=== PATIENT | male | born 1935 | race Caucasian/White ===

== ENCOUNTER 2022-04-06 14:11 | Inpatient (IN) | payer OTHER ==
[2022-04-06 15:37] LABS: VENOUS O2 SATURATION 96.6 % (70-80); VENOUS PCO2 32.5 mmHg (38-52); VENOUS PH 7.422 (7.310-7.410)
[2022-04-06 15:46] LABS: BASO % 0.3 % (0-2.0); EOS % 1.2 % (0-4.5); HEMATOCRIT 32.6 % (35.4-49); HEMOGLOBIN 10.3 GM/dL (11.7-16.9); LYMPH % 2.6 % (8-40); MCHC 31.6 g/dl (32.0-35.9); MEAN CELL VOLUME 85.4 fl (80-96); MEAN PLT VOLUME 8.5 fl (7.5-11.1); MONO % 8.3 % (3.8-10.2); NEUT % 87.6 % (42.8-82.8); PLATELET COUNT 133 10^3/uL (134-434); RBC 3.82 M/mm3 (4.00-5.60); RDW 15.9 % (11.9-15.9); WHITE BLOOD COUNT 11.6 K/mm3 (4.0-10.0)
[2022-04-06 15:57] LABS: ACTIVATED PTT 37.2 SECONDS (25.2-36.5); INR 1.74 (0.83-1.09); PROTHROMBIN TIME (PATIENT) 20.1 SEC (9.7-13.0)
[2022-04-06 16:03] LABS: CALCIUM 8.3 mg/dL (8.5-10.1)
[2022-04-06 16:04] LABS: ALBUMIN 3.2 g/dl (3.4-5.0)
[2022-04-06 16:07] LABS: CREATININE 1.5 mg/dL (0.55-1.3)
[2022-04-06 16:09] LABS: BILIRUBIN,TOTAL 1.2 mg/dL (0.2-1); TOT PROT 7.8 g/dl (6.4-8.2)
[2022-04-06] MEDS ORDERED: FUROSEMIDE 40 MG/4 ML INJECTABLE VIAL IVPUSH ONE (20:02)
[2022-04-06] MEDS ORDERED: ASPIRIN 81 MG CHEWABLE TABLETS PO ONE (20:02)
[2022-04-06] MEDS ORDERED: ATORVASTATIN CA 80 MG TABLET (FP) PO ONE (20:09)
[2022-04-06] MEDS ORDERED: APIXABAN 2.5 MG TABLET ONE (20:50)
[2022-04-06] MEDS ORDERED: METOPROLOL TARTRATE 25 MG TABLET (FP) ONE (20:50)
[2022-04-06] MEDS ORDERED: SENNOSIDES 8.6MG TABLET (FP) PO ONE (20:50)
[2022-04-06] MEDS ORDERED: ATORVASTATIN CA 40 MG TABLET (FP) ONE (20:50)
[2022-04-06] MEDS ORDERED: FUROSEMIDE 40 MG/4 ML INJECTABLE VIAL ONE (20:51)
[2022-04-06] MEDS ORDERED: ASPIRIN 81 MG CHEWABLE TABLETS ONE (20:51)
[2022-04-06] MEDS ORDERED: DOCUSATE SODIUM 100 MG CAPSULE (FP) PO ONE (20:51)
[2022-04-06] MEDS: APIXABAN 2.5 MG TABLET PO SCH (21:05)
[2022-04-06] MEDS: DOCUSATE SODIUM 100 MG CAPSULE (FP) PO SCH (21:05)
[2022-04-06] MEDS: METOPROLOL TARTRATE 25 MG TABLET (FP) PO SCH (21:05)
[2022-04-06] MEDS: SENNOSIDES 8.6MG TABLET (FP) PO SCH (21:05)
[2022-04-06 22:00] LABS: URINE APPEARANCE CLEAR; URINE BILIRUBIN NEGATIVE (NEGATIVE); URINE COLOR YELLOW; URINE GLUCOSE (UA) NEGATIVE (NEGATIVE); URINE KETONE NEGATIVE (NEGATIVE); URINE LEUK ESTERASE NEGATIVE (NEGATIVE); URINE NITRITE NEGATIVE (NEGATIVE); URINE PROTEIN TRACE (NEGATIVE); URINE UROBILINOGEN 0.2 mg/dL (0.2-1.0)
[2022-04-06] MEDS ORDERED: VANCOMYCIN 1 GM in D5W (PRE-DOCKED) 1,000 MG/250 ML IVPB SCH ×2 (22:34→22:45)
[2022-04-06] MEDS ORDERED: VANCOMYCIN 1 GRAM (PRE-DOCKED) 1,000 MG/250 ML BAG IVPB ONE (23:02)
[2022-04-07] MEDS ORDERED: FUROSEMIDE 40 MG/4 ML INJECTABLE VIAL ONE ×2 (06:06→13:30)
[2022-04-07] MEDS: FUROSEMIDE 40 MG/4 ML INJECTABLE VIAL IVPUSH SCH ×2 (06:20→13:50)
[2022-04-07 08:35] LABS: BASO % 0.3 % (0-2.0); EOS % 5.7 % (0-4.5); HEMATOCRIT 32.6 % (35.4-49); HEMOGLOBIN 10.4 GM/dL (11.7-16.9); LYMPH % 10.1 % (8-40); MCH 27.3 pg (25.7-33.7); MCHC 31.9 g/dl (32.0-35.9); MEAN CELL VOLUME 85.4 fl (80-96); MEAN PLT VOLUME 8.6 fl (7.5-11.1); MONO % 11.6 % (3.8-10.2); NEUT % 72.3 % (42.8-82.8); PLATELET COUNT 134 10^3/uL (134-434); RBC 3.82 M/mm3 (4.00-5.60); RDW 16.1 % (11.9-15.9); WHITE BLOOD COUNT 7.3 K/mm3 (4.0-10.0)
[2022-04-07 08:49] LABS: CALCIUM 8.8 mg/dL (8.5-10.1)
[2022-04-07 08:50] LABS: MAGNESIUM 2.4 mg/dL (1.8-2.4)
[2022-04-07 08:51] LABS: ALBUMIN 3.2 g/dl (3.4-5.0)
[2022-04-07 08:52] LABS: BLOOD UREA NITROGEN 35.7 mg/dL (7-18)
[2022-04-07 08:53] LABS: CREATININE 1.5 mg/dL (0.55-1.3)
[2022-04-07 08:55] LABS: PHOSPHOROUS 3.7 mg/dL (2.5-4.9); TOT PROT 7.5 g/dl (6.4-8.2)
[2022-04-07 08:56] LABS: BILIRUBIN,TOTAL 1.5 mg/dL (0.2-1)
[2022-04-07] MEDS ORDERED: METOPROLOL TARTRATE 25 MG TABLET (FP) ONE ×2 (09:42→21:33)
[2022-04-07] MEDS ORDERED: APIXABAN 2.5 MG TABLET ONE ×2 (09:42→21:34)
[2022-04-07] MEDS: METOPROLOL TARTRATE 25 MG TABLET (FP) PO SCH ×2 (09:57→21:54)
[2022-04-07] MEDS: APIXABAN 2.5 MG TABLET PO SCH ×2 (09:57→21:54)
[2022-04-07] MEDS ORDERED: HEPARIN NA (PORCINE) 5,000 UNITS/ML 1ML VIAL SQ SCH (10:00)
[2022-04-07] MEDS ORDERED: CEFTRIAXONE 1 GM/50 ML BAG ONE (12:11)
[2022-04-07] MEDS: CEFTRIAXONE 1 GM in DEXTROSE 5%-WATER - 50 ML IVPB SCH (12:26)
[2022-04-07] MEDS ORDERED: DOCUSATE SODIUM 100 MG CAPSULE (FP) PO ONE (21:34)
[2022-04-07] MEDS ORDERED: SENNOSIDES 8.6MG TABLET (FP) PO ONE (21:34)
[2022-04-07] MEDS: DOCUSATE SODIUM 100 MG CAPSULE (FP) PO SCH (21:54)
[2022-04-07] MEDS: SENNOSIDES 8.6MG TABLET (FP) PO SCH (21:54)
[2022-04-08] MEDS ORDERED: ALBUTEROL SO4 0.083% IH SOL 2.5 MG/3 ML VIAL.NEB. NEB ONE (04:15)
[2022-04-08] MEDS ORDERED: HALOPERIDOL LACTATE 5 MG/ML IM ONE (04:24)
[2022-04-08] MEDS: FUROSEMIDE 40 MG/4 ML INJECTABLE VIAL IVPUSH SCH ×2 (05:00→15:12)
[2022-04-08 08:23] LABS: BASO % 0.5 % (0-2.0); EOS % 4.7 % (0-4.5); HEMATOCRIT 31.6 % (35.4-49); HEMOGLOBIN 10.1 GM/dL (11.7-16.9); LYMPH % 11.2 % (8-40); MCH 26.9 pg (25.7-33.7); MCHC 31.8 g/dl (32.0-35.9); MEAN CELL VOLUME 84.4 fl (80-96); MEAN PLT VOLUME 8.6 fl (7.5-11.1); MONO % 12.7 % (3.8-10.2); NEUT % 70.9 % (42.8-82.8); PLATELET COUNT 127 10^3/uL (134-434); RBC 3.75 M/mm3 (4.00-5.60); RDW 16.2 % (11.9-15.9); WHITE BLOOD COUNT 6.5 K/mm3 (4.0-10.0)
[2022-04-08 08:43] LABS: ALBUMIN 3.2 g/dl (3.4-5.0); BLOOD UREA NITROGEN 38.8 mg/dL (7-18); CALCIUM 8.7 mg/dL (8.5-10.1)
[2022-04-08 08:46] LABS: CREATININE 1.5 mg/dL (0.55-1.3)
[2022-04-08 08:48] LABS: BILIRUBIN,TOTAL 1.3 mg/dL (0.2-1); TOT PROT 7.8 g/dl (6.4-8.2)
[2022-04-08] MEDS ORDERED: cefTRIAXone SODIUM 1 GM VIAL ONE (09:33)
[2022-04-08] MEDS ORDERED: DEXTROSE 5%-WATER - 50 ML IVPB ONE (09:33)
[2022-04-08] MEDS: METOPROLOL TARTRATE 25 MG TABLET (FP) PO SCH ×2 (09:36→21:44)
[2022-04-08] MEDS: CEFTRIAXONE 1 GM in DEXTROSE 5%-WATER - 50 ML IVPB SCH (09:36)
[2022-04-08] MEDS: APIXABAN 2.5 MG TABLET PO SCH ×2 (09:36→21:44)
[2022-04-08] MEDS ORDERED: PNEUMOC 20-VAL CONJ-DIP CRM/PF 0.5 ML SYRINGE IM ONE (10:30)
[2022-04-08 16:05] VITALS: BMI 27.7
[2022-04-08] MEDS: DOCUSATE SODIUM 100 MG CAPSULE (FP) PO SCH (21:44)
[2022-04-08] MEDS: SENNOSIDES 8.6MG TABLET (FP) PO SCH (21:45)
[2022-04-09] MEDS ORDERED: HALOPERIDOL LACTATE 5 MG/ML IM ONE (01:30)
[2022-04-09] MEDS: FUROSEMIDE 40 MG/4 ML INJECTABLE VIAL IVPUSH SCH ×2 (05:41→13:15)
[2022-04-09] MEDS ORDERED: cefTRIAXone SODIUM 1 GM VIAL ONE (10:13)
[2022-04-09] MEDS ORDERED: DEXTROSE 5%-WATER - 50 ML IVPB ONE ×2 (10:13→17:55)
[2022-04-09] MEDS: METOPROLOL TARTRATE 25 MG TABLET (FP) PO SCH ×2 (10:14→22:20)
[2022-04-09] MEDS: CEFTRIAXONE 1 GM in DEXTROSE 5%-WATER - 50 ML IVPB SCH (10:15)
[2022-04-09] MEDS: APIXABAN 2.5 MG TABLET PO SCH ×2 (10:15→22:19)
[2022-04-09 16:15] LABS: BILIRUBIN,DIRECT 0.4 mg/dL (0.0-0.2)
[2022-04-09] MEDS ORDERED: PIPERACILLIN/TAZOBACTAM 3.375 GM VIAL IVPB ONE (17:55)
[2022-04-09] MEDS: PIPERACILLIN/TAZOB 3.375 GM 3.375 GM in DEXTROSE 5%-WATER - 50 ML IVPB SCH ×2 (17:56→20:48)
[2022-04-09] MEDS ORDERED: QUEtiapine FUMARATE 25 MG TABLET PO SCH (22:00)
[2022-04-09] MEDS: ACETAMINOPHEN 325 MG TABLET (FP) PO PRN (22:19)
[2022-04-09] MEDS: SENNOSIDES 8.6MG TABLET (FP) PO SCH (22:19)
[2022-04-10] MEDS ORDERED: PIPERACILLIN/TAZOBACTAM 3.375 GM VIAL IVPB ONE ×3 (01:47→17:06)
[2022-04-10] MEDS ORDERED: DEXTROSE 5%-WATER - 50 ML IVPB ONE ×3 (01:48→17:06)
[2022-04-10] MEDS: PIPERACILLIN/TAZOB 3.375 GM 3.375 GM in DEXTROSE 5%-WATER - 50 ML IVPB SCH ×3 (02:22→17:11)
[2022-04-10] MEDS: FUROSEMIDE 40 MG/4 ML INJECTABLE VIAL IVPUSH SCH ×2 (05:58→14:03)
[2022-04-10 09:27] LABS: BASO % 0.5 % (0-2.0); EOS % 11.5 % (0-4.5); HEMATOCRIT 31.3 % (35.4-49); HEMOGLOBIN 10.2 GM/dL (11.7-16.9); LYMPH % 11.1 % (8-40); MCH 27.7 pg (25.7-33.7); MCHC 32.7 g/dl (32.0-35.9); MEAN CELL VOLUME 84.6 fl (80-96); MEAN PLT VOLUME 8.2 fl (7.5-11.1); MONO % 11.3 % (3.8-10.2); NEUT % 65.6 % (42.8-82.8); PLATELET COUNT 128 10^3/uL (134-434); RBC 3.69 M/mm3 (4.00-5.60); RDW 15.6 % (11.9-15.9); WHITE BLOOD COUNT 5.8 K/mm3 (4.0-10.0)
[2022-04-10 10:02] LABS: ALBUMIN 2.9 g/dl (3.4-5.0)
[2022-04-10 10:03] LABS: TOT PROT 7.3 g/dl (6.4-8.2)
[2022-04-10 10:05] LABS: BILIRUBIN,DIRECT 0.3 mg/dL (0.0-0.2)
[2022-04-10] MEDS: METOPROLOL TARTRATE 25 MG TABLET (FP) PO SCH ×2 (10:49→21:57)
[2022-04-10] MEDS: PANTOPRAZOLE 20 MG TABLET PO SCH (10:49)
[2022-04-10] MEDS: APIXABAN 2.5 MG TABLET PO SCH ×2 (10:49→21:57)
[2022-04-10] MEDS: POLYETHYLENE GLYCOL (HEALTHYLAX) 3350 17 GM PACKET PO SCH ×2 (10:49→11:22)
[2022-04-10] MEDS ORDERED: IRON SUCROSE INJECTION 200 MG in SODIUM CHLORIDE 90 ML IVPB ONE (14:00)
[2022-04-10] MEDS ORDERED: PNEUMOC 20-VAL CONJ-DIP CRM/PF 0.5 ML SYRINGE IM ONE ×2 (18:00→22:00)
[2022-04-10] MEDS: SENNOSIDES 8.6MG TABLET (FP) PO SCH (21:57)
[2022-04-11] MEDS ORDERED: PIPERACILLIN/TAZOBACTAM 3.375 GM VIAL IVPB ONE ×2 (01:34→11:18)
[2022-04-11] MEDS ORDERED: DEXTROSE 5%-WATER - 50 ML IVPB ONE ×2 (01:34→11:18)
[2022-04-11] MEDS: PIPERACILLIN/TAZOB 3.375 GM 3.375 GM in DEXTROSE 5%-WATER - 50 ML IVPB SCH ×2 (02:19→10:55)
[2022-04-11] MEDS: FUROSEMIDE 40 MG/4 ML INJECTABLE VIAL IVPUSH SCH ×2 (06:59→15:00)
[2022-04-11 08:50] LABS: BASO % 0.4 % (0-2.0); EOS % 11.4 % (0-4.5); HEMOGLOBIN 10.7 GM/dL (11.7-16.9); LYMPH % 12.9 % (8-40); MCH 27.3 pg (25.7-33.7); MCHC 32.3 g/dl (32.0-35.9); MEAN CELL VOLUME 84.5 fl (80-96); MEAN PLT VOLUME 8.2 fl (7.5-11.1); MONO % 10.3 % (3.8-10.2); PLATELET COUNT 159 10^3/uL (134-434); RDW 15.5 % (11.9-15.9); WHITE BLOOD COUNT 6.2 K/mm3 (4.0-10.0)
[2022-04-11 09:19] LABS: ALBUMIN 3.2 g/dl (3.4-5.0)
[2022-04-11 09:21] LABS: CALCIUM 8.6 mg/dL (8.5-10.1); CREATININE 1.5 mg/dL (0.55-1.3)
[2022-04-11 09:24] LABS: BILIRUBIN,TOTAL 1.3 mg/dL (0.2-1); TOT PROT 7.7 g/dl (6.4-8.2)
[2022-04-11 10:26] LABS: HEPATITIS B SURFACE AG MATERN NON-REACTIVE (NONREACTIVE)
[2022-04-11] MEDS: APIXABAN 2.5 MG TABLET PO SCH ×2 (10:55→21:18)
[2022-04-11] MEDS: METOPROLOL TARTRATE 25 MG TABLET (FP) PO SCH ×2 (10:55→21:18)
[2022-04-11] MEDS: POLYETHYLENE GLYCOL (HEALTHYLAX) 3350 17 GM PACKET PO SCH (10:55)
[2022-04-11] MEDS: PANTOPRAZOLE 20 MG TABLET PO SCH (10:55)
[2022-04-11] MEDS: VANCOMYCIN/WATER 1250 MG 1,250 MG/250 ML BAG IVPB SCH (15:13)
[2022-04-11] MEDS: SENNOSIDES 8.6MG TABLET (FP) PO SCH (21:18)
[2022-04-12] MEDS: FUROSEMIDE 40 MG/4 ML INJECTABLE VIAL IVPUSH SCH ×2 (06:34→13:47)
[2022-04-12] MEDS: POLYETHYLENE GLYCOL (HEALTHYLAX) 3350 17 GM PACKET PO SCH (09:09)
[2022-04-12] MEDS: APIXABAN 2.5 MG TABLET PO SCH ×2 (09:09→22:47)
[2022-04-12] MEDS: METOPROLOL TARTRATE 25 MG TABLET (FP) PO SCH ×2 (09:09→22:48)
[2022-04-12] MEDS: PANTOPRAZOLE 20 MG TABLET PO SCH (09:09)
[2022-04-12] MEDS: VANCOMYCIN/WATER 1250 MG 1,250 MG/250 ML BAG IVPB SCH (13:58)
[2022-04-12] MEDS: SENNOSIDES 8.6MG TABLET (FP) PO SCH (22:48)
[2022-04-13] MEDS: FUROSEMIDE 40 MG/4 ML INJECTABLE VIAL IVPUSH SCH ×2 (06:28→13:45)
[2022-04-13] MEDS: METOPROLOL TARTRATE 25 MG TABLET (FP) PO SCH ×2 (09:53→21:08)
[2022-04-13] MEDS: PANTOPRAZOLE 20 MG TABLET PO SCH (09:53)
[2022-04-13] MEDS: APIXABAN 2.5 MG TABLET PO SCH ×2 (09:53→21:08)
[2022-04-13] MEDS: POLYETHYLENE GLYCOL (HEALTHYLAX) 3350 17 GM PACKET PO SCH (09:53)
[2022-04-13] MEDS: VANCOMYCIN/WATER 1250 MG 1,250 MG/250 ML BAG IVPB SCH (13:46)
[2022-04-13] MEDS: SENNOSIDES 8.6MG TABLET (FP) PO SCH (21:08)
[2022-04-14] MEDS: FUROSEMIDE 40 MG/4 ML INJECTABLE VIAL IVPUSH SCH ×2 (06:23→13:53)
[2022-04-14] MEDS: ACETAMINOPHEN 325 MG TABLET (FP) PO PRN ×2 (06:28→14:03)
[2022-04-14 07:50] LABS: BASO % 0.4 % (0-2.0); EOS % 2.1 % (0-4.5); HEMATOCRIT 35.2 % (35.4-49); HEMOGLOBIN 11.2 GM/dL (11.7-16.9); LYMPH % 7.2 % (8-40); MCH 26.9 pg (25.7-33.7); MCHC 31.8 g/dl (32.0-35.9); MEAN CELL VOLUME 84.5 fl (80-96); MEAN PLT VOLUME 8.2 fl (7.5-11.1); NEUT % 82.3 % (42.8-82.8); PLATELET COUNT 197 10^3/uL (134-434); RBC 4.17 M/mm3 (4.00-5.60); RDW 15.7 % (11.9-15.9); WHITE BLOOD COUNT 9.9 K/mm3 (4.0-10.0)
[2022-04-14 08:12] LABS: CALCIUM 9.1 mg/dL (8.5-10.1)
[2022-04-14 08:13] LABS: BLOOD UREA NITROGEN 36.5 mg/dL (7-18)
[2022-04-14 08:17] LABS: CREATININE 1.5 mg/dL (0.55-1.3)
[2022-04-14] MEDS: PANTOPRAZOLE 20 MG TABLET PO SCH (10:11)
[2022-04-14] MEDS: POLYETHYLENE GLYCOL (HEALTHYLAX) 3350 17 GM PACKET PO SCH (10:11)
[2022-04-14] MEDS: METOPROLOL TARTRATE 25 MG TABLET (FP) PO SCH ×2 (10:11→21:05)
[2022-04-14] MEDS: APIXABAN 2.5 MG TABLET PO SCH ×2 (10:11→21:05)
[2022-04-14] MEDS: VANCOMYCIN/WATER 1250 MG 1,250 MG/250 ML BAG IVPB SCH (13:56)
[2022-04-14] MEDS: SENNOSIDES 8.6MG TABLET (FP) PO SCH (21:05)
[2022-04-14] MEDS: OLANZapine 2.5 MG TABLET PO SCH (21:05)
[2022-04-15] MEDS: FUROSEMIDE 40 MG/4 ML INJECTABLE VIAL IVPUSH SCH ×2 (06:44→14:47)
[2022-04-15] MEDS: POLYETHYLENE GLYCOL (HEALTHYLAX) 3350 17 GM PACKET PO SCH (09:41)
[2022-04-15] MEDS: METOPROLOL TARTRATE 25 MG TABLET (FP) PO SCH ×2 (09:41→21:31)
[2022-04-15] MEDS: PANTOPRAZOLE 20 MG TABLET PO SCH (09:41)
[2022-04-15] MEDS: APIXABAN 2.5 MG TABLET PO SCH ×2 (09:41→21:32)
[2022-04-15] MEDS: SENNOSIDES 8.6MG TABLET (FP) PO SCH (21:31)
[2022-04-15] MEDS: OLANZapine 2.5 MG TABLET PO SCH (21:31)
[2022-04-16] MEDS: FUROSEMIDE 40 MG/4 ML INJECTABLE VIAL IVPUSH SCH ×2 (06:20→14:21)
[2022-04-16] MEDS: APIXABAN 2.5 MG TABLET PO SCH ×2 (10:15→22:32)
[2022-04-16] MEDS: METOPROLOL TARTRATE 25 MG TABLET (FP) PO SCH ×2 (10:15→22:32)
[2022-04-16] MEDS: POLYETHYLENE GLYCOL (HEALTHYLAX) 3350 17 GM PACKET PO SCH (10:15)
[2022-04-16] MEDS: PANTOPRAZOLE 20 MG TABLET PO SCH (10:15)
[2022-04-16] MEDS: SENNOSIDES 8.6MG TABLET (FP) PO SCH (22:32)
[2022-04-16] MEDS: OLANZapine 2.5 MG TABLET PO SCH (22:32)
[2022-04-17] MEDS: FUROSEMIDE 40 MG/4 ML INJECTABLE VIAL IVPUSH SCH ×2 (05:52→13:12)
[2022-04-17] MEDS: APIXABAN 2.5 MG TABLET PO SCH (09:21)
[2022-04-17] MEDS: METOPROLOL TARTRATE 25 MG TABLET (FP) PO SCH (09:22)
[2022-04-17] MEDS: PANTOPRAZOLE 20 MG TABLET PO SCH (09:22)
[2022-04-17] MEDS: POLYETHYLENE GLYCOL (HEALTHYLAX) 3350 17 GM PACKET PO SCH (09:22)
[2022-04-17 14:53] VITALS: PULSE 71
[2022-04-17 18:27] VITALS: BP 101/56; TEMP 97.8
== END 2022-04-17 19:10 | DRG 291 ==
LOC: JER 14:11 → JERBED 16:49 → J4S 04-07 23:37
PROVIDERS: ADMIT Internal Medicine
DX: I11.0 Hypertensive heart disease with heart failure (principal); J96.01 Acute respiratory failure with hypoxia; I50.33 Acute on chronic diastolic (congestive) heart failure; I24.8 Other forms of acute ischemic heart disease; L03.115 Cellulitis of right lower limb; A04.72 Enterocolitis due to Clostridium difficile, not specified as recurrent; D68.9 Coagulation defect, unspecified; A49.02 Methicillin resistant Staphylococcus aureus infection, unspecified site; E78.5 Hyperlipidemia, unspecified; K21.9 Gastro-esophageal reflux disease without esophagitis; F03.90 Unspecified dementia, unspecified severity, without behavioral disturbance, psychotic disturbance, mood disturbance, and anxiety; I48.91 Unspecified atrial fibrillation; D69.6 Thrombocytopenia, unspecified; I25.10 Atherosclerotic heart disease of native coronary artery without angina pectoris; K59.00 Constipation, unspecified
CPT/HCPCS: 0241U-QW; 36415; 71045-TC-FY; 76705-TC; 76775-TC; 80048; 80053; 80061; 80076; 81003; 82248; 82272; 82570; 82728; 82803; 82962; 83010; 83540; 83550; 83615; 83735; 83880; 84100; 84156; 84484; 85025; 85045; 85379; 85610; 85730; 86704; 86709; 86803; 86850; 86900; 86901; 87040; 87070; 87186; 87205; 87340; 87517; 90677; 93005; 93010; 93306-TC; 93970-TC; 94640; 97116-GP; 97161-GP; 99285-25; C9803-CS; G0480; J1756; U0003; U0005

== ENCOUNTER 2022-09-23 02:41 | Emergency (ER) | payer OTHER ==
[2022-09-23 02:59] VITALS: BP 131/76; PULSE 87; RESP 16; TEMP 97.7; BMI 28.5
== END 2022-09-23 06:02 | disposition home or self-care (01) ==
LOC: JER 02:41
DX: S00.83XA Contusion of other part of head, initial encounter (principal); W01.0XXA Fall on same level from slipping, tripping and stumbling without subsequent striking against object, initial encounter
CPT/HCPCS: 70450-TC; 72125-TC; 99284-25

== ENCOUNTER 2023-02-06 12:16 | Inpatient (IN) | payer OTHER ==
[2023-02-06 13:22] LABS: BASO % 0.7 % (0-2.0); HEMATOCRIT 36.3 % (35.4-49); HEMOGLOBIN 11.8 GM/dL (11.7-16.9); MCH 27.9 pg (25.7-33.7); MCHC 32.5 g/dl (32.0-35.9); MEAN CELL VOLUME 85.7 fl (80-96); MEAN PLT VOLUME 9.6 fl (7.5-11.1); MONO % 16.2 % (3.8-10.2); NEUT % 69.1 % (42.8-82.8); PLATELET COUNT 102 10^3/uL (134-434); RBC 4.23 M/mm3 (4.00-5.60); RDW 16.6 % (11.9-15.9); WHITE BLOOD COUNT 5.2 K/mm3 (4.0-10.0)
[2023-02-06 13:27] LABS: INR 2.22 (0.83-1.09); PROTHROMBIN TIME (PATIENT) 25.5 SEC (9.7-13.0)
[2023-02-06 13:29] LABS: ACTIVATED PTT 43.9 SECONDS (25.2-36.5)
[2023-02-06 13:31] LABS: VENOUS BASE EXCESS 0.4 mmol/L (-2-2); VENOUS O2 SATURATION 61.5 % (70-80); VENOUS PCO2 53.6 mmHg (38-52); VENOUS PH 7.326 (7.310-7.410)
[2023-02-06 13:49] LABS: CALCIUM 8.7 mg/dL (8.5-10.1)
[2023-02-06 13:50] LABS: BLOOD UREA NITROGEN 44.9 mg/dL (7-18)
[2023-02-06 13:51] LABS: MAGNESIUM 2.4 mg/dL (1.8-2.4)
[2023-02-06 13:53] LABS: CREATININE 1.5 mg/dL (0.55-1.3)
[2023-02-06 13:55] LABS: BILIRUBIN,TOTAL 1.1 mg/dL (0.2-1)
[2023-02-06 13:58] LABS: N-TERMINAL BNP 3851.1 pg/ml (5-450)
[2023-02-06] MEDS ORDERED: FUROSEMIDE 40 MG/4 ML INJECTABLE VIAL IVPUSH ONE (14:17)
[2023-02-06] MEDS ORDERED: FUROSEMIDE 40 MG/4 ML INJECTABLE VIAL ONE (14:38)
[2023-02-06] MEDS ORDERED: ALBUTEROL SO4 2.5/IPRATROPIUM 0.5 INH SOL 3 ML VIAL.NEB. NEB PRN ×2 (15:50→15:58)
[2023-02-06 15:55] LABS: URINE APPEARANCE CLEAR; URINE BILIRUBIN NEGATIVE (NEGATIVE); URINE COLOR YELLOW; URINE GLUCOSE (UA) NEGATIVE (NEGATIVE); URINE KETONE NEGATIVE (NEGATIVE); URINE LEUK ESTERASE NEGATIVE (NEGATIVE); URINE NITRITE NEGATIVE (NEGATIVE); URINE PROTEIN NEGATIVE (NEGATIVE); URINE UROBILINOGEN 0.2 mg/dL (0.2-1.0)
[2023-02-06] MEDS ORDERED: METOPROLOL TARTRATE 25 MG TABLET (FP) PO SCH (22:00)
[2023-02-06] MEDS: APIXABAN 2.5 MG TABLET PO SCH (22:34)
[2023-02-07] MEDS: HALOPERIDOL LACTATE 5 MG/ML IM PRN (04:01)
[2023-02-07] MEDS: ASCORBIC ACID 500 MG TABLET (FP) PO SCH (09:04)
[2023-02-07] MEDS: APIXABAN 2.5 MG TABLET PO SCH ×2 (09:04→21:43)
[2023-02-07 10:16] LABS: BASO % 0.6 % (0-2.0); EOS % 3.6 % (0-4.5); HEMATOCRIT 35.8 % (35.4-49); HEMOGLOBIN 11.4 GM/dL (11.7-16.9); MCH 27.2 pg (25.7-33.7); MCHC 31.9 g/dl (32.0-35.9); MEAN CELL VOLUME 85.2 fl (80-96); MEAN PLT VOLUME 8.8 fl (7.5-11.1); MONO % 14.3 % (3.8-10.2); NEUT % 70.5 % (42.8-82.8); PLATELET COUNT 104 10^3/uL (134-434); RBC 4.21 M/mm3 (4.00-5.60); RDW 17.2 % (11.9-15.9); WHITE BLOOD COUNT 5.5 K/mm3 (4.0-10.0)
[2023-02-07 10:49] LABS: PHOSPHOROUS 4.2 mg/dL (2.5-4.9)
[2023-02-07 10:50] LABS: BILIRUBIN,TOTAL 1.7 mg/dL (0.2-1); BLOOD UREA NITROGEN 50.8 mg/dL (7-18)
[2023-02-07 10:51] LABS: MAGNESIUM 2.5 mg/dL (1.8-2.4); TOT PROT 7.5 g/dl (6.4-8.2)
[2023-02-07 10:52] LABS: CREATININE 1.6 mg/dL (0.55-1.3)
[2023-02-07] MEDS: AMINO ACIDS 4.25%/D5W 1,000 ML IV SCH (13:30)
[2023-02-08] MEDS: HALOPERIDOL LACTATE 5 MG/ML IM PRN ×3 (08:29→20:15)
[2023-02-08] MEDS: ASCORBIC ACID 500 MG TABLET (FP) PO SCH (09:50)
[2023-02-08] MEDS: APIXABAN 2.5 MG TABLET PO SCH ×2 (09:50→21:02)
[2023-02-08 09:53] LABS: BASO % 0.5 % (0-2.0); EOS % 4.8 % (0-4.5); HEMATOCRIT 36.4 % (35.4-49); HEMOGLOBIN 11.9 GM/dL (11.7-16.9); LYMPH % 9.6 % (8-40); MCH 27.9 pg (25.7-33.7); MCHC 32.8 g/dl (32.0-35.9); MEAN CELL VOLUME 85.1 fl (80-96); MEAN PLT VOLUME 9.3 fl (7.5-11.1); MONO % 14.6 % (3.8-10.2); NEUT % 70.5 % (42.8-82.8); PLATELET COUNT 122 10^3/uL (134-434); RBC 4.28 M/mm3 (4.00-5.60); RDW 16.6 % (11.9-15.9); WHITE BLOOD COUNT 5.7 K/mm3 (4.0-10.0)
[2023-02-08 10:23] LABS: CALCIUM 8.6 mg/dL (8.5-10.1)
[2023-02-08 10:24] LABS: BLOOD UREA NITROGEN 56.8 mg/dL (7-18)
[2023-02-08 10:27] LABS: CREATININE 1.7 mg/dL (0.55-1.3)
[2023-02-08] MEDS: QUEtiapine FUMARATE 25 MG TABLET PO SCH (12:14)
[2023-02-08] MEDS: AMINO ACIDS 4.25%/D5W 1,000 ML IV SCH ×2 (13:04→13:46)
[2023-02-09] MEDS: AMINO ACIDS 4.25%/D5W 1,000 ML IV SCH ×2 (03:05→15:38)
[2023-02-09] MEDS: HALOPERIDOL LACTATE 5 MG/ML IM PRN ×2 (05:10→13:46)
[2023-02-09] MEDS: ASCORBIC ACID 500 MG TABLET (FP) PO SCH (09:35)
[2023-02-09] MEDS: APIXABAN 2.5 MG TABLET PO SCH ×2 (09:36→22:12)
[2023-02-09] MEDS: QUEtiapine FUMARATE 25 MG TABLET PO SCH (09:36)
[2023-02-10] MEDS: AMINO ACIDS 4.25%/D5W 1,000 ML IV SCH ×2 (04:49→17:40)
[2023-02-10] MEDS: APIXABAN 2.5 MG TABLET PO SCH ×2 (10:18→21:32)
[2023-02-10] MEDS: ASCORBIC ACID 500 MG TABLET (FP) PO SCH (10:18)
[2023-02-10] MEDS: QUEtiapine FUMARATE 25 MG TABLET PO SCH (10:18)
[2023-02-11] MEDS: AMINO ACIDS 4.25%/D5W 1,000 ML IV SCH ×4 (09:09→23:34)
[2023-02-11] MEDS: APIXABAN 2.5 MG TABLET PO SCH ×2 (09:33→21:37)
[2023-02-11] MEDS: ASCORBIC ACID 500 MG TABLET (FP) PO SCH (09:33)
[2023-02-11] MEDS: QUEtiapine FUMARATE 25 MG TABLET PO SCH ×2 (09:34→21:37)
[2023-02-11 09:47] LABS: BASO % 0.3 % (0-2.0); EOS % 4.9 % (0-4.5); HEMATOCRIT 35.4 % (35.4-49); HEMOGLOBIN 11.6 GM/dL (11.7-16.9); LYMPH % 8.7 % (8-40); MCH 27.9 pg (25.7-33.7); MCHC 32.7 g/dl (32.0-35.9); MEAN CELL VOLUME 85.3 fl (80-96); MEAN PLT VOLUME 8.4 fl (7.5-11.1); MONO % 13.9 % (3.8-10.2); NEUT % 72.2 % (42.8-82.8); PLATELET COUNT 114 10^3/uL (134-434); RBC 4.15 M/mm3 (4.00-5.60); RDW 16.8 % (11.9-15.9)
[2023-02-11 10:16] LABS: CALCIUM 8.4 mg/dL (8.5-10.1)
[2023-02-11 10:17] LABS: ALBUMIN 2.8 g/dl (3.4-5.0); BLOOD UREA NITROGEN 50.8 mg/dL (7-18)
[2023-02-11 10:18] LABS: CREATININE 1.3 mg/dL (0.55-1.3)
[2023-02-11 10:19] LABS: TOT PROT 7.3 g/dl (6.4-8.2)
[2023-02-11 10:20] LABS: BILIRUBIN,TOTAL 1.3 mg/dL (0.2-1)
[2023-02-11] MEDS ORDERED: QUEtiapine FUMARATE 25 MG TABLET PO ONE (12:12)
[2023-02-11 12:42] VITALS: BMI 27.4
[2023-02-12] MEDS ORDERED: ALBUTEROL SO4 2.5/IPRATROPIUM 0.5 INH SOL 3 ML VIAL.NEB. NEB ONE (00:09)
[2023-02-12 06:16] VITALS: PULSE 71
[2023-02-12 09:44] VITALS: BP 108/77; RESP 20; TEMP 98.1
[2023-02-12] MEDS: APIXABAN 2.5 MG TABLET PO SCH (09:45)
[2023-02-12] MEDS: QUEtiapine FUMARATE 25 MG TABLET PO SCH ×2 (09:46)
[2023-02-12] MEDS: ASCORBIC ACID 500 MG TABLET (FP) PO SCH (09:47)
[2023-02-12] MEDS ORDERED: DONEPEZIL HCL 5 MG TABLET (FP) PO SCH (10:00)
[2023-02-12] MEDS: AMINO ACIDS 4.25%/D5W 1,000 ML IV SCH (12:57)
== END 2023-02-12 13:19 | DRG 57 ==
LOC: JER 12:16 → JERBED 14:46 → J5S 15:58
PROVIDERS: ADMIT Internal Medicine
DX: G30.9 Alzheimer's disease, unspecified (principal); I24.8 Other forms of acute ischemic heart disease; I25.10 Atherosclerotic heart disease of native coronary artery without angina pectoris; K21.9 Gastro-esophageal reflux disease without esophagitis; I11.0 Hypertensive heart disease with heart failure; I50.9 Heart failure, unspecified; F02.80 Dementia in other diseases classified elsewhere, unspecified severity, without behavioral disturbance, psychotic disturbance, mood disturbance, and anxiety; I48.91 Unspecified atrial fibrillation; Z95.0 Presence of cardiac pacemaker; Z79.01 Long term (current) use of anticoagulants; R13.10 Dysphagia, unspecified; D69.6 Thrombocytopenia, unspecified; D64.9 Anemia, unspecified; K82.8 Other specified diseases of gallbladder
CPT/HCPCS: 0241U-QW; 36415; 70450-TC; 71045-TC-FY; 74230-TC-FY; 80048; 80053; 81003; 82550; 82803; 82962; 83605; 83735; 83880; 84100; 84484; 85025; 85610; 85730; 86850; 86900; 86901; 87040; 87086; 92611-GN; 93005; 93010; 94640; 97116-GP; 97162-GP; 99285-25; C9803-CS; U0003; U0005